=== PATIENT | male | born 1995 | race Caucasian/White ===

== ENCOUNTER 2020-01-11 06:49 | Outpatient (CLI) | payer BC, SELFPAY ==
--- NOTE | 2020-01-11 07:04 | US_ITS ---
WS: [id number] ULTRASOUND BREAST RIGHT TECHNIQUE: Ultrasound right breast focused area of concern. CLINICAL INFORMATION: RIGHT BREAST LUMP COMPARISON: None. FINDINGS: Ultrasound right breast at the lateral inferior areola in the area of concern. Shallow well-circumscr ibed echogenic lesion measuring 1.7 x 2.2 x 0.8 cm most consistent with lipoma or fibroadenolipoma in a patient this age. This has a benign appearance. No other abnormalities. No suspicious lesions to cuate mays for biopsy. US/US breast RT limited* [id number] IMPRESSION: BI-RADS 2 benign FOLLOW UP: Annual screening mammography age 39
== END 2020-01-11 06:50 | disposition home or self-care (01) ==
PROVIDERS: Family Provider Pediatrics Adolescent Medicine; Visit Provider Nurse Practitioner Family
DX: N63.10 Unspecified lump in the right breast, unspecified quadrant (principal)
CPT/HCPCS: 76642